=== PATIENT | female | born 1995 | race Caucasian/White ===

== ENCOUNTER 2020-10-28 00:18 | Emergency (ER) | payer BC ==
[~2020-10-28] VITALS: Ht 170.2 cm; Wt 90.9 kg
[2020-10-28 00:29] VITALS: TEMP 98.3
[2020-10-28 01:27] LABS: COLLECTION METHOD CLEAN CATCH
[2020-10-28 01:34] LABS: MUCOUS Present /lpf; PH 8 (5-8); SQUAMOUS EPITHELIAL 0-2 /hpf; URINE APPEARANCE Hazy; URINE BACTERIA None Seen /hpf; URINE BILIRUBIN Negative (NEGATIVE); URINE BLOOD Negative (NEGATIVE); URINE COLOR Yellow; URINE GLUCOSE Negative (NEGATIVE); URINE KETONE Negative (NEGATIVE); URINE LEUKOCYTE ESTERASE Negative (NEGATIVE); URINE NITRATE Negative (NEGATIVE); URINE PROTEIN(semi-quant) Negative (NEGATIVE); URINE RBC 0-2 /hpf; URINE UROBILINOGEN Negative (NEGATIVE); URINE WBC 0-2 /hpf
[2020-10-28 01:42] LABS: TRICYCLIC ANTIDEPRESS URINE NEGATIVE
[2020-10-28 01:44] LABS: BASO % 0.5 % (0.0-2.0); EOS # 0.1 (0.0-0.7); EOS % 1.7 % (0-4.0); GRAN # 5.3 (1.4-6.5); GRAN % 64.9 % (42.2-75.2); HEMATOCRIT 41.3 % (37.0-47.0); HEMOGLOBIN 13.7 g/dl (12.5-16.0); LYMPH # 2.1 (1.2-3.4); LYMPH % 25.7 % (20.0-51.0); MEAN CELL VOLUME 89 fl (80.0-100.0); MEAN CORPUSCULAR HEMOGLOBIN 30 pg (27.0-31.0); MEAN CORPUSCULAR HGB CONC 33 g/dl (33.0-37.0); MEAN PLATELET VOLUME 9.1 fl (7.4-10.4); MONO # 0.6 (0.1-0.6); MONO % 7.1 % (1.7-9.3); PLATELET COUNT 287 K/mm3 (130-400); RED BLOOD COUNT 4.63 M/mm3 (4.10-5.30)
[2020-10-28 01:56] LABS: ALANINE AMINOTRANSFERASE 19 U/L (4-34); ALBUMIN 3.9 gm/dL (3.5-5.0); ALKALINE PHOSPHATASE 57 U/L (50-136); ANION GAP 3 mmol/L (7-16); AST,SGOT 19 U/L (15-37); BILIRUBIN,TOTAL 0.2 mg/dL (0.0-1.0); BLOOD UREA NITROGEN 8 mg/dL (7-17); CALCIUM 9.9 mg/dL (8.4-10.2); CARBON DIOXIDE 25 mmol/L (22-30); CHLORIDE 108 mmol/L (98-107); CREATININE, serum 0.56 (0.52-1.25); GLUCOSE 114 mg/dL (74-106); POTASSIUM 4.4 mmol/L (3.4-5.0); SODIUM 137 mmol/L (137-145); TOTAL PROTEIN 6.8 gm/dL (6.4-8.2)
[2020-10-28 02:06] LABS: ACETAMINOPHEN < 10 ug/mL (10-30); ALCOHOL(ethanol),MEDICAL < 10 mg/dL; SALICYLATE < 1.0 mg/dL
[2020-10-28 03:31] VITALS: BP 133/70; PULSE 77
== END 2020-10-28 03:31 | disposition home or self-care (01) ==
LOC: COL.ER 00:18
PROVIDERS: Personal Emergency Response Attendant
DX: F32.9 Major depressive disorder, single episode, unspecified (principal); F17.290 Nicotine dependence, other tobacco product, uncomplicated; Z88.8 Allergy status to other drugs, medicaments and biological substances

== ENCOUNTER 2021-12-31 05:44 | Outpatient (CLI) | payer BC ==
--- NOTE | 2021-12-31 05:48 | NUR ---
Ambulatory to unit for assessment, accompanied by spouse. Pt reports vaginal bleeding and "sharp abd pain that started 30 minutes ago" On monitor. Vaginal sweep yields no blood noted on glove.
[2021-12-31 06:10] VITALS: BP 131/78; PULSE 98
--- NOTE | 2021-12-31 06:25 | NUR ---
Dr. Small at the bedside. Spec exam and SVE done with no blood noted and cervix closed per Dr. Small. Plan of care for oral hydration and UA reviewed. Pt verbalized an understanding.
[2021-12-31 06:42] LABS: COLLECTION METHOD CLEAN CATCH
[2021-12-31 07:10] LABS: MUCOUS Present (NOT PRESENT); SQUAMOUS EPITHELIAL 0-2 /hpf (0-10); URINE BACTERIA None Seen /hpf (NONE SEEN); URINE RBC 0-2 /hpf (0-2); URINE WBC 0-2 /hpf (0-2)
[2021-12-31 07:11] LABS: URINE APPEARANCE Clear (CLEAR/HAZY); URINE COLOR Yellow (YELLOW); URINE GLUCOSE Negative (NEGATIVE); URINE KETONE Negative (NEGATIVE); URINE PROTEIN(semi-quant) Negative (NEGATIVE); URINE UROBILINOGEN 0.2 E.U/dL (0.2-1.0)
[2021-12-31 07:12] LABS: URINE BLOOD Negative (NEGATIVE); URINE NITRATE Negative (NEGATIVE)
--- NOTE | 2021-12-31 07:15 | NUR ---
Dr. Sofia on the unit. FHR tracing and lab results reviewed. Orders for discharge home received. Plan of care reviewed with pt and at the bedside. Both verbalized an understanding, agreed with the plan and states no questions or concerns at this time.
[2021-12-31] MEDS ORDERED: EFFEXOR-XR150 MG PO (07:25)
[2021-12-31] MEDS ORDERED: PRENATAL (07:25)
[2021-12-31] MEDS ORDERED: COLACE 100100 MG/CAP PO (07:26)
[2021-12-31] MEDS ORDERED: ZOFRAN 4MG T4 MG/TAB PO (07:26)
== END 2021-12-31 07:30 | disposition home or self-care (01) ==
LOC: LDR 05:44 → LDRO 05:44
PROVIDERS: Student in an Organized Health Care Education/Training Program
DX: O46.90 Antepartum hemorrhage, unspecified, unspecified trimester (principal); Z3A.00 Weeks of gestation of pregnancy not specified
CPT/HCPCS: OP

== ENCOUNTER 2022-02-03 09:42 | Outpatient (CLI) | payer BC ==
[~2022-02-03] VITALS: Ht 170.2 cm; Wt 135.9 kg
[2022-02-03] VITALS (9 sets, daily range): BP systolic 126–145; BP diastolic 75–97; PULSE 82–126; TEMP 97.1
[~2022-02-03 09:42] MED LIST: COLACE 100100 MG/CAP PO; EFFEXOR-XR150 MG PO; PRENATAL; ZOFRAN 4MG T4 MG/TAB PO
[2022-02-03] MEDS ORDERED: TYLENOL 500MG500 MG PO (10:39)
--- NOTE | 2022-02-03 11:00 | NUR ---
1015- ED triage nurse calls this RN. Pt came into hospital after a syncope episode at 0300 this morning. Pt hit her head and has lump. BP elevated. Requesting assessment from OB. This RN agrees, Pt escorted onto unit by poultry service technician, L.Platt. 1025- This RN to bedside, Pt in bed. EFM and TOCO on and tracing well. O2 sat monitor on and tracing maternal HR. Pt states she got very dizzy walking to the bathroom early this morning, fell and hit her head on the wall. Pt does not think she hit her head. Pt denies VB, LOF, UCs or cramping. HR 122. Pt alert and oriented, will monitor VS. Assessments completed.
--- NOTE | 2022-02-03 11:00 | NUR ---
1015- ED triage nurse calls this RN. Pt came into hospital after a syncope episode at 0300 this morning. Pt hit her head and has lump. BP elevated. Requesting assessment from OB. This RN agrees, Pt escorted onto unit by environmental engineering technician, L.Platt. 1025- This RN to bedside, Pt in bed. EFM and TOCO on and tracing well. O2 sat monitor on and tracing maternal HR. Pt states she got very dizzy walking to the bathroom early this morning, fell and hit her head on the wall. Pt does not think she hit her head. Pt denies VB, LOF, UCs or cramping. HR 122. Pt alert and oriented, will monitor VS. Assessments completed.
[2022-02-03 12:02] LABS: BASO % 0.2 % (0.0-2.0); EOS # 0.1 K/mm3 (0.0-0.7); EOS % 0.6 % (0.0-4.0); GRAN # 9.4 K/mm3 (1.4-6.5); GRAN % 74.8 % (42.2-75.2); HEMOGLOBIN 13.2 g/dl (12.5-16.0); LYMPH # 2.3 K/mm3 (1.2-3.4); LYMPH % 18.1 % (20.0-51.0); MEAN CELL VOLUME 90 fl (80.0-100.0); MEAN CORPUSCULAR HEMOGLOBIN 30 pg (27-31); MEAN CORPUSCULAR HGB CONC 34 g/dl (33.0-37.0); MEAN PLATELET VOLUME 9.2 fl (7.4-10.4); MONO # 0.7 K/mm3 (0.1-0.6); MONO % 5.6 % (1.7-9.3); PLATELET COUNT 293 K/mm3 (130-400); RED BLOOD COUNT 4.34 M/mm3 (4.10-5.30); REDCELL DISTRIBUTION WIDTH-CV 12.7 % (11.5-14.5)
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
[2022-02-03 12:16] LABS: ALBUMIN 2.9 gm/dL (3.5-5.0); BILIRUBIN,TOTAL 0.3 mg/dL (0.2-1.2); CREATININE, serum 0.61 mg/dL (0.57-1.11); POTASSIUM 3.5 mmol/L (3.5-4.5); TOTAL PROTEIN 6.6 gm/dL (6.2-8.1)
--- NOTE | 2022-02-03 12:30 | NUR ---
1207- Pt ambulates to bathroom independently with RN standby. 1212- Pt back to bed, EFM and TOCO on and tracing. Pt denies dizziness.
--- NOTE | 2022-02-03 12:30 | NUR ---
1207- Pt ambulates to bathroom independently with RN standby. 1212- Pt back to bed, EFM and TOCO on and tracing. Pt denies dizziness.
--- NOTE | 2022-02-03 12:45 | NUR ---
1245- Discussed discharge plan with Pt. Discussed this RN's concern for mental health stability. Encouraged Pt to reach out to [facility] to be seen by Dr Sofia or a PROPELLER TESTER this week per Dr Frausto. Encouraged Pt to reach out to therapist earlier than next scheduled appointment. Encouraged Pt to take prescribed Zofran as needed to help with nausea and increase food intake to small, frequent meals. Pt verbalized understanding.
--- NOTE | 2022-02-03 12:45 | NUR ---
1245- Discussed discharge plan with Pt. Discussed this RN's concern for mental health stability. Encouraged Pt to reach out to [facility] to be seen by Dr Sofia or a RESOURCE EFFICIENCY MANAGER this week per Dr Frausto. Encouraged Pt to reach out to therapist earlier than next scheduled appointment. Encouraged Pt to take prescribed Zofran as needed to help with nausea and increase food intake to small, frequent meals. Pt verbalized understanding.
--- NOTE | 2022-02-03 13:30 | NUR ---
1315- EFM and TOCO off. 1330- Discharge paperwork given and explained. Pt ambulates off unit in stable condition with spouse.
--- NOTE | 2022-02-03 13:30 | NUR ---
1315- EFM and TOCO off. 1330- Discharge paperwork given and explained. Pt ambulates off unit in stable condition with spouse.
== END 2022-02-03 13:30 | disposition home or self-care (01) ==
LOC: COL.ER 09:42 → LDRO 09:42 → EDSTATUS 11:49 → LDRO 13:30
PROVIDERS: Obstetrics & Gynecology
DX: O9A.213 Injury, poisoning and certain other consequences of external causes complicating pregnancy, third trimester (principal); Z3A.33 33 weeks gestation of pregnancy; W18.30XA Fall on same level, unspecified, initial encounter
CPT/HCPCS: J7120

== ENCOUNTER 2022-02-27 07:56 | Outpatient (CLI) | payer BC ==
[~2022-02-27] VITALS: Ht 167.6 cm; Wt 132.3 kg
[~2022-02-27 07:56] MED LIST changes: +TYLENOL 500MG500 MG PO
--- NOTE | 2022-02-27 08:10 | NUR ---
PT TO UNIT WITH MOTHER IN LAW. PT REPORTS CTX Q7-10 MINUTES AND WAS DIZZY THIS MORNING. PT WORKED ALL NIGHT AT [facility] AND THINKS SHE MIGHT JUST BE DEHYDRATED. SVE PER DR. AYALA 1./2. EFM TRACING CAT 1.
--- NOTE | 2022-02-27 08:30 | NUR ---
PER DR. AYALA- PT CAN D/C HOME AFTER DRINKING WATER. NO NEED TO RECHECK.
[2022-02-27 08:45] VITALS: BP 113/89; PULSE 112; TEMP 97.7
[2022-02-27 09:00] VITALS: TEMP 97.7
== END 2022-02-27 09:00 | disposition home or self-care (01) ==
LOC: LDRO 07:56
DX: Z34.93 Encounter for supervision of normal pregnancy, unspecified, third trimester (principal); Z3A.36 36 weeks gestation of pregnancy